=== PATIENT | female | born 1970 | race Caucasian/White ===

== ENCOUNTER 2017-05-10 12:53 | Outpatient (CLI) | payer OTHER ==
--- NOTE | 2017-05-10 14:11 | DIAGNOSTIC IMAGING REPORT ---
PROCEDURE: DEXA BONE DENSITY STUDY CLINICAL INDICATION: OSTEOPENIA COMPARISON: DEXA dated 03/18/2016 FINDINGS: LUMBAR SPINE: Bone mineral density 0.892 g/cm2, T score -1.4 osteopenia. This represents no change from the previous study but a 2.5% improvement from the study done in 2003. LEFT HIP: Bone mineral density 0.844 g/cm2, T score -0.8 normal and this represents a 6.4% improvement from the previous study LEFT FEMORAL NECK: Bone mineral density 0.665 g/cm2, T score -1.7 osteopenia and this represents a 3.6% decrease in bone mineral density since the previous study. FRACTURE RISK CALCULATION ( when applicable): 10-year fracture risk of a major osteoporotic fracture and of a hip fracture not reported because: premenopausal woman. (T score greater or equal to -1.0 to: NORMAL) (T score from -1.1 to -2.4: OSTEOPENIA) (T score ess than or equal to -2.5: OSTEOPOROSIS) IMPRESSION: 1. Normal hip. Osteopenia lumbar spine and femoral neck.
== END 2017-05-10 23:00 ==
LOC: XR SRH 12:53
DX: M85.89 Other specified disorders of bone density and structure, multiple sites (principal)